=== PATIENT | female | born 1955 | race Caucasian/White ===

== ENCOUNTER 2021-06-03 10:21 | Outpatient (CLI) | payer MEDICARE, BC | END 2021-06-03 10:22 | disposition home or self-care (01) | LOC: NAV RAD 10:21 | PROVIDERS: ATTEND Family Medicine | DX: M15.9 Polyosteoarthritis, unspecified (principal); M47.816 Spondylosis without myelopathy or radiculopathy, lumbar region | CPT/HCPCS: 72100; 72220 ==

== ENCOUNTER 2023-10-04 11:16 | Outpatient (CLI) | payer MEDICARE, BC | END 2023-10-04 11:17 | disposition home or self-care (01) | LOC: NAV CT 11:16 | PROVIDERS: ATTEND Family Medicine | DX: M47.26 Other spondylosis with radiculopathy, lumbar region (principal) | CPT/HCPCS: 72100 ==